=== PATIENT | female | born 1935 | race Caucasian/White ===

== ENCOUNTER 2019-04-26 16:39 | Inpatient (IN) | payer OTHER ==
[~2019-04-26] VITALS: Ht 167.6 cm; Wt 56.4 kg
--- NOTE | ~2019-04-26 | H ---
[facility] [place] [address] HISTORY AND PHYSICAL Name: RONNIE BUSH Room #: 429-P ADM IN M.R.#: [id number] Admission: 04/26/19 Attend Phys: Jason Alcaraz MD Discharge: Date of : 36 Report #: [id number] THIS REPORT FOR: //name// CC: Jason Alcaraz HISTORY OF PRESENT ILLNESS: The patient is an 83-year-old female who was brought to the Emergency Room with severe vertigo where she was feeling very dizzy and unsteady. The patient was having some extensive nausea and vomiting. For this reason, she was given some meclizine and eventually if she was given benzodiazepine without improvement of her symptoms and eventually she was admitted to the hospital overnight. When I came to see her today, the patient's symptoms have cleared up completely. The patient was able to move her head without any problem and she was able to move in the room in the presence of myself, the nurse and her son without any problem. The patient is not able to remember what happened to her yesterday because of her underlying dementia. PAST MEDICAL HISTORY: Significant for dementia, depression, anxiety and type 2 diabetes mellitus. The patient does not use any walker or cane in the correction facility. The patient has a history of hyperlipidemia in addition to hypertension. MEDICATIONS: The patient's medications include Aricept 5 mg daily, citalopram 10 mg daily, metformin 500 mg b.i.d., acetaminophen 650 mg every 8 hours, Imodium 2 mg to use as directed, milk of magnesia 15 mL t.i.d. p.r.n., bisacodyl 5 mg daily and memantine 10 mg daily. ALLERGIES: No known drug allergies. SOCIAL HISTORY: The patient is living in a skilled memory care assisted living. No recent history of smoking, alcohol use or drug use. REVIEW OF SYSTEMS: Negative besides what was mentioned above. PHYSICAL EXAMINATION: VITAL SIGNS: On arrival to the hospital, the patient's temperature was 36.7, pulse 53, respirations 18, blood pressure 191/87 and last blood pressure is 173/78. HEAD AND NECK: Unremarkable. Neck was supple. LUNGS: Clear to auscultation. CARDIAC: S1, S2. ABDOMEN: Benign. Bowel sounds were positive. EXTREMITIES: Without any edema. NEUROLOGIC: Cranial nerves were intact. Power is 5/5 on the upper and lower extremities. The patient does not have any sensory deficit. The patient was able to move her head in all directions without any limitation. The patient does not have any nystagmus. The patient was able to walk without any assistance and without any signs of vertigo [place] [address] HISTORY AND PHYSICAL Name: RONNIE BUSH Room #: 429-P ADM IN M.R.#: [id number] Admission: 04/26/19 Attend Phys: Jason Alcaraz MD Discharge: Date of : 36 Report #: [id number] ASSESSMENT AND PLAN: Benign positional vertigo that has cleared up completely. I talked to the patient's son and to the nurse on the floor about the patient's condition. We are planning to have the patient eat her diet and ambulate as much as possible. I will ask for the patient to be discharged back to her assisted living today because his symptoms have cleared up completely. The patient will be followed at the assisted living. By: [phone] Jason Alcaraz MD /nt
[2019-04-26 16:41] VITALS: BP 136/82
[2019-04-26] MEDS ORDERED: LEXAPRO 10 MG T10 M2 PO (16:44)
[2019-04-26] MEDS ORDERED: APAP650 PO (16:44)
[2019-04-26] MEDS ORDERED: METFORMIN HCL500 MG PO (16:44)
[2019-04-26] MEDS ORDERED: ARICEPT 5 MG TAB5 MG PO (16:44)
[2019-04-26] MEDS ORDERED: LOPERAMIDE 2 MG2 M1 PO (16:44)
[2019-04-26] MEDS ORDERED: DULCOLAX5 MG RECTAL (16:45)
[2019-04-26] MEDS ORDERED: MILK OF MA400 MG/5 M PO (16:45)
[2019-04-26] MEDS ORDERED: NAMENDA 10 MG T10 MG PO (16:45)
[2019-04-26 17:15] LABS: ABSOLUTE NEUTROPHILS 6.3 thou/uL (1.4-8.2); BASOPHILS 0.7 % (0.0-2.0); EOSINOPHILS 0.3 % (0.0-3.0); HEMATOCRIT 41.3 % (37.0-47.0); HEMOGLOBIN 14.2 gm/dL (12.0-15.0); LYMPHOCYTES 28.3 % (24.0-44.0); MCH 30.6 pg (26.0-34.0); MCHC 34.5 g/dL (28.0-37.0); MCV 88.6 fL (80.0-100.0); MONOCYTES 4.6 % (1.0-8.0); PLATELET COUNT 237 thou/uL (150-400); POLYS 66.1 % (36.0-66.0); RBC 4.66 mil/uL (4.20-5.00); RDW 13.8 % (10.5-14.5); WBC 9.5 thou/uL (4.0-11.0)
[2019-04-26 17:26] LABS: CALCIUM 9.3 mg/dL (8.5-10.1); CREATININE 0.7 mg/dL (0.6-1.0); POTASSIUM 3.5 mmol/L (3.5-5.1)
[2019-04-26 17:41] LABS: ALBUMIN 3.6 g/dL (3.4-5.0); TOTAL BILIRUBIN 0.6 mg/dL (<0.1-1.0)
[2019-04-26 19:11] LABS: URINE BILIRUBIN NEGATIVE (Negative); URINE BLOOD 1+ (Negative); URINE CLARITY CLEAR; URINE COLOR YELLOW; URINE GLUCOSE-RANDOM* NEGATIVE (Negative); URINE KETONES 1+ (Negative); URINE LEUKOCYTES-REFLEX NEGATIVE (Negative); URINE NITRITE-REFLEX NEGATIVE (Negative); URINE UROBILINOGEN 0.2 E.U./dl (0.2-1.0)
[2019-04-26 19:14] LABS: SSA (PROTEIN CONFIRMATORY) TRACE (APPROX. 5) mg/dL (Negative)
[2019-04-26 19:16] LABS: SQUAMOUS >10 Many /LPF (0-3)
[2019-04-26 19:17] LABS: CASTS None Seen /LPF (None Seen); URINE RBC 3-10 Few /HPF (0-2); URINE WBC-REFLEX 0-5 Rare /HPF (0-5)
[2019-04-26 19:18] LABS: AMORPHOUS PHOSPHATES Moderate /LPF (None Seen); BACTERIA-REFLEX None Seen /HPF (None Seen)
[2019-04-26 19:43] VITALS: BP 146/77
[2019-04-26 19:50] VITALS: BP 174/79
[2019-04-26 20:10] VITALS: BP 173/78
--- NOTE | 2019-04-26 23:49 | NUR ---
PT ARRIVED ON THE UNIT @1999 FROM ER A&OX3 WITH HX OF DEMENTIA. SON KATHRYN(DPOA) HELPED WITH ANSWERING QUESTIONS AND ADMISSION. ZOFRAN GIVEN IN THE ER DUE TO N/V. DENIES PAIN. UP WITH ASSISTX1 TO THE BATHROOM. SLIGHT DIZZINESS NOTED. ADM DOCUMENTED, FALL PREC IN PLACE AND ROOM NEAR TO THE NURSE STATION. WILL CONTINUE TO MONITOR TILL EOS.
[2019-04-27 05:17] VITALS: BP 191/86
--- NOTE | 2019-04-27 07:57 | EKG ---
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 04/27/19 0757 1840 1840 Chava Garcia MD, FACC /EPI
[2019-04-27 09:31] VITALS: BP 191/86
--- NOTE | 2019-04-27 10:00 | NUR ---
PT ASSESSED AT START OF SHIFT. PT UP AND AROUND IN THE ROOM W/ STANDBY AND DOING WELL. STATES NO MORE DIZZINESS. DR. WEINER IN WHILE SON HERE AND DISCUSSED PLAN OF CARE TO SEND BACK HOME TODAY AND HAVE HOME HEALTH F/U. INSTRUCTED PT TO DRINK WATER DURING THE DAY. PT DISCHARGED AT THIS TIME W/ SON TRANSPORTING.
--- NOTE | 2019-04-27 10:04 | NUR ---
INITIAL ASSESSMENT: Pt evaluated for d/c planning needs. Reviewed chart and spoke with nurse, pt and pt's son. Pt is a [facility] resident at [facility]. Pt was independent with ADL's and used no DME. Pt has history of dementia. Son said that he was trying to make arrangements with [facility] for outpatient PT and OT. Spoke with assistant director of admissions at [facility] and faxed referral. She said she would contact Javi with [facility] to continue services with outpatient PT and OT at facility. Pt to be d/c today. Son to provide transport. Patient choice letter signed and placed on chart. No other needs identified.
== END 2019-04-27 12:52 | DRG 149 ==
LOC: ER 16:39 → 4E 19:26 → EROBS 19:26 → 4E 19:53
PROVIDERS: Physician Assistant; ADMIT Internal Medicine
DX: H81.10 Benign paroxysmal vertigo, unspecified ear (principal); F32.9 Major depressive disorder, single episode, unspecified; F03.90 Unspecified dementia, unspecified severity, without behavioral disturbance, psychotic disturbance, mood disturbance, and anxiety; F41.9 Anxiety disorder, unspecified; E11.9 Type 2 diabetes mellitus without complications; I10 Essential (primary) hypertension; E78.5 Hyperlipidemia, unspecified; Z79.84 Long term (current) use of oral hypoglycemic drugs
CPT/HCPCS: 10183

== ENCOUNTER → 2019-07-21 | Outpatient (CLI) | payer OTHER ==
[~2019-07-21] MED LIST: APAP650 PO; ARICEPT 5 MG TAB5 MG PO; DULCOLAX5 MG RECTAL; LEXAPRO 10 MG T10 M2 PO; LOPERAMIDE 2 MG2 M1 PO; METFORMIN HCL500 MG PO; MILK OF MA400 MG/5 M PO; NAMENDA 10 MG T10 MG PO
[2019-07-21 13:27] LABS: ABSOLUTE NEUTROPHILS 4.6 thou/uL (1.4-8.2); BASOPHILS 0.8 % (0.0-2.0); EOSINOPHILS 1.7 % (0.0-3.0); HEMATOCRIT 40.8 % (37.0-47.0); HEMOGLOBIN 13.6 gm/dL (12.0-15.0); LYMPHOCYTES 39.2 % (24.0-44.0); MCH 29.5 pg (26.0-34.0); MCHC 33.4 g/dL (28.0-37.0); MCV 88.3 fL (80.0-100.0); PLATELET COUNT 417 thou/uL (150-400); POLYS 50.3 % (36.0-66.0); RBC 4.62 mil/uL (4.20-5.00); RDW 13.4 % (10.5-14.5); WBC 9.1 thou/uL (4.0-11.0)
[2019-07-21 13:33] LABS: CALCIUM 10.1 mg/dL (8.5-10.1); CREATININE 0.8 mg/dL (0.6-1.0); POTASSIUM 4.2 mmol/L (3.5-5.1)
== END ==
LOC: CAT 10:23 → LABMALL 12:50 → CAT 12:50
PROVIDERS: Internal Medicine
DX: R41.82 Altered mental status, unspecified (principal); R90.82 White matter disease, unspecified

== ENCOUNTER 2020-03-09 11:36 | Inpatient (IN) | payer OTHER ==
[~2020-03-09] VITALS: Ht 160 cm; Wt 58.2 kg
--- NOTE | ~2020-03-09 | EMS ---
[facility] [address] [place] [address] EMS Patient Care Report Name: RONNIE BUSH Room #: 436-P ADM IN M.R.#: [id number] Admission: 03/09/20 Attend Phys: Jason Alcaraz MD Discharge: Date of : 36 Report #: [id number] THIS REPORT FOR: //name// Report Transmitted: 03/10/2020 03:57 EMS Care Summary [place], [place]/[facility] Incident [id number] @ 03/09/2020 11:04 Incident Location [address] Patient RONNIE BUSH Female, 84 Years 1935 Patient Address [address] [place] [address] Patient History Dementia,Diabetes,Hypertension (HTN),Hyperlipidemia,Depression,Anxiety, Patient Allergies No known allergies, Patient Medications Metformin, Loperamide, Zofran, Aspirin, Ativan, Seroquel, Tylenol, Chief Complaint PAIN IN RIGHT SHOULDER AND RIGHT LEG Disposition Transported No Lights/[place] Dispatch Reason Falls Transported To [facility] Narrative SCENE; ON ARRIVAL PT FOUND LYING UPRIGHT IN BED IN BEDROOM AT ADDRESS PROVIDED. PT IS AWAKE AND ALERT WITH A GCS OF 15. STAFF REPORTS PT SUSTAINED AN UNWITNESSED FALL, AND WAS FOUND BY FACILITY STAFF. PT REPORTS SHE LOST HER [facility] [address] [place] [address] EMS Patient Care Report Name: RONNIE BUSH Room #: 436-P ADM IN ..#: [id number] Admission: 03/09/20 Attend Phys: Jason Alcaraz MD Discharge: Date of : 36 Report #: [id number] FOOTING, AND FELL FROM A STANDING POSITION ONTO THE CARPET. PT DENIES LOC. PT HAS NO OBVIOUS INJURIES, BUT C/O RIGHT ELBOW AND RIGHT LEG PAIN. PT HAS A HX OF DEMENTIA AND STAFF REPORTS PT IS TYPICALLY SOMEWHAT CONFUSED, DEPENDING ON THE DAY, BUT IS ALSO TYPICALLY FAIRLY STUBBORN. PT INITIALLY DOES NOT WISH TO GO WITH EMS, BUT AGREES TO GO WITH EMS FOR URTHER EVAL AND TREATMENT BY AN ER DR. PT ASSISTED ONTO EMS STRETCHER. AMBULANCE VITALS MONITORED THROUGHOUT TRANSPORT. NO CHANGES IN PT STATUS EN ROUTE. Initial Vitals @11:29P: 79,R: 20,BP: 178/72,Pain: 2/10,GCS: 14,Revised Trauma: 12, @11:14P: 80,R: 20,Pain: 2/10,GCS: 14,Revised Trauma: 12, Assessments @11:15MENTAL:No Abnormalities,SKIN:No Abnormalities,HEENT:Head/Face: No Abnormalities,Eyes: No Abnormalities,Neck/Airway: No Abnormalities,LUNG SOUNDS:General: No Abnormalities,Left Upper: No Abnormalities,Right Upper: No Abnormalities,Left Lower: No Abnormalities,Right Lower: No Abnormalities,ABDOMEN:General: No Abnormalities,Left Upper: No Abnormalities,Right Upper: No Abnormalities,Left Lower: No Abnormalities,Right Lower: No Abnormalities,PELVIS//GI:No Abnormalities,EXTREMITIES:Right Arm: Other,Right Leg: Other,Left Arm: No Abnormalities,Left Leg: No Abnormalities,PULSE:NEURO:No Abnormalities,@11:26MENTAL:No Abnormalities,SKIN:No Abnormalities,HEENT:Head/Face: No Abnormalities,Eyes: No Abnormalities,Neck/Airway: No Abnormalities,LUNG SOUNDS:General: No Abnormalities,Left Upper: No Abnormalities,Right Upper: No Abnormalities,Left Lower: No Abnormalities,Right Lower: No Abnormalities,ABDOMEN:General: No Abnormalities,Left Upper: No Abnormalities,Right Upper: No Abnormalities,Left Lower: No Abnormalities,Right Lower: No Abnormalities,PELVIS//GI:No Abnormalities,EXTREMITIES:PULSE:NEURO:No Abnormalities, Impression Extremity Pain Procedures @11:15ALS AssessmentResponse: UnchangedSucceeded@11:24StretcherResponse: Unchanged Timeline 11:02,Call Received 11:02,Dispatch Notified 11:04,Dispatched 11:04,En Route 11:12,On Scene 11:14,At Patient [address] [address] EMS Patient Care Report Name: RONNIE BUSH Room #: [facility]- ADM IN M.R.#: [id number] Admission: 03/09/20 Attend Phys: Jason Alcaraz MD Discharge: Date of : 36 Report #: [id number] 11:14,BP: 162/ M,PULSE: 80,RR: 20 R,SPO2: Ox,ETCO2: ,BG: ,PAIN: 2,GCS: 14, 11:15,ALS Assessment,Response: UnchangedSucceeded, 11:24,Stretcher,Response: Unchanged 11:29,BP: 178/72 M,PULSE: 79,RR: 20 R,SPO2: Ox,ETCO2: ,BG: ,PAIN: 2,GCS: 14, 11:29,Depart Scene 11:33,At Destination 11:53,Call Closed Disclaimer v1.1 Copyright 2020 [employer] This EMS Care Summary contains data elements from the applicable legal record (which may be displayed differently). It is designed to provide pertinent information for the following purposes: continuity of care, clinical quality, and state data reporting. The complete legal record is available to ED staff and administrators of the receiving hospital in [employer]'s Patient Tracker. All data is provided "as is."
[2020-03-09 11:38] VITALS: BP 194/90
[2020-03-09] MEDS ORDERED: PAIN RELIEF325 MG PO (11:49)
[2020-03-09] MEDS ORDERED: ONDANSETRON HCL4 M2 PO (11:50)
[2020-03-09] MEDS ORDERED: ATIVAN0.5 M1 PO (11:51)
[2020-03-09] MEDS ORDERED: ASA81BEC PO (11:52)
[2020-03-09] MEDS ORDERED: SEROQUEL 25 MG25 M1 PO (11:52)
[2020-03-09 12:41] LABS: ABSOLUTE NEUTROPHILS 6.2 thou/uL (1.4-8.2); BASOPHILS 0.9 % (0.0-2.0); EOSINOPHILS 1.3 % (0.0-3.0); HEMATOCRIT 41.2 % (37.0-47.0); HEMOGLOBIN 13.9 gm/dL (12.0-15.0); LYMPHOCYTES 25.8 % (24.0-44.0); MCH 30.6 pg (26.0-34.0); MCHC 33.8 g/dL (28.0-37.0); MCV 90.6 fL (80.0-100.0); MONOCYTES 6.5 % (1.0-8.0); PLATELET COUNT 275 thou/uL (150-400); POLYS 65.5 % (36.0-66.0); RBC 4.55 mil/uL (4.20-5.00); RDW 14.1 % (10.5-14.5); WBC 9.5 thou/uL (4.0-11.0)
[2020-03-09 12:48] LABS: CALCIUM 9.2 mg/dL (8.5-10.1); CREATININE 0.9 mg/dL (0.6-1.0); POTASSIUM 3.9 mmol/L (3.5-5.1)
[2020-03-09 13:36] LABS: PROTIME 10.6 Seconds (9.3-11.4)
--- NOTE | 2020-03-09 14:32 | EKG ---
[facility] [place] [address] ELECTROCARDIOGRAM REPORT Name: RONNIE BUSH Room #: [facility]#: [id number] Admission: 03/09/20 Attend Phys: Discharge: Date of : 36 Report #: [id number] THIS REPORT FOR: cc: Jason Alcaraz MD, Ammar MD Couchonnal, Luis F. 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
[2020-03-09 18:20] VITALS: BP 148/101
--- NOTE | 2020-03-09 18:39 | NUR ---
TO ROOM 436, PER NAVYA, NOT 439
[2020-03-09 18:42] LABS: URINE BILIRUBIN NEGATIVE (Negative); URINE BLOOD NEGATIVE (Negative); URINE CLARITY CLEAR; URINE COLOR YELLOW; URINE GLUCOSE-RANDOM* NEGATIVE (Negative); URINE KETONES NEGATIVE (Negative); URINE NITRITE-REFLEX NEGATIVE (Negative); URINE PROTEIN (DIPSTICK) NEGATIVE (Negative); URINE SPECIFIC GRAVITY 1.015 (1.005-1.035); URINE UROBILINOGEN 0.2 E.U./dl (0.2-1.0)
[2020-03-09 18:45] LABS: URINE LEUKOCYTES-REFLEX 1+ (Negative)
[2020-03-09 18:49] LABS: BACTERIA-REFLEX >30 Many /HPF (None Seen); CASTS None Seen /LPF (None Seen); CRYSTALS None Seen /LPF (None Seen); SQUAMOUS 0-3 Few /LPF (0-3); URINE RBC None Seen /HPF (0-2); URINE WBC-REFLEX 6-15 Few /HPF (0-5)
[2020-03-09 18:53] VITALS: BP 125/67
[2020-03-09 19:20] VITALS: BP 132/84
[2020-03-10] VITALS (7 sets, daily range): BP systolic 138–175; BP diastolic 65–84
--- NOTE | 2020-03-10 01:30 | NUR ---
PT ARRIVED FROM THE ER VIA CART @1920. AOX2-3 FORGETFULL STILL ABLE TO ANSWER QUESTIONS. ORIENTED TO THE ROOM. PT SPOKE TO SON OVER THE PHONE. CALLED DR WEINER AND ORDERS RECEIVED FOR PAIN CONTROL AND FLUID INFUISION. MORPHINE GIVEN FOR RT HIP PAIN OF 510. PT NPO FOR SX TOMORROW. FOLLEY CATH IN PLACE. VSS. CALL LIGHT IN REACH, FALL PREC IN PLACE AND WILL CONT WITH POC TILL EOS.
[2020-03-10 06:02] LABS: HEMATOCRIT 39.9 % (37.0-47.0); MCH 30.2 pg (26.0-34.0); MCHC 32.7 g/dL (28.0-37.0); MCV 92.5 fL (80.0-100.0); RBC 4.31 mil/uL (4.20-5.00); RDW 14.5 % (10.5-14.5); WBC 8.5 thou/uL (4.0-11.0)
[2020-03-10 06:14] LABS: CALCIUM 8.5 mg/dL (8.5-10.1); CREATININE 0.7 mg/dL (0.6-1.0); POTASSIUM 3.8 mmol/L (3.5-5.1)
--- NOTE | 2020-03-10 07:43 | EKG ---
[facility] [place] [address] [place] [address] ELECTROCARDIOGRAM REPORT Name: RONNIE BUSH Room #: 436-P ADM IN M.R.#: [id number] Admission: 03/09/20 Attend Phys: Jason Alcaraz MD Discharge: Date of : 36 Report #: [id number] THIS REPORT FOR: cc: Jason Alcaraz MD, Ammar MD Lundgren,Chava Duarte MD [facility] ~ THIS REPORT FOR: //name// 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 : 1935 Requested By: Shilpa Knowles Order Number: [id number] MD: Chava Garcia Measurements Intervals [place] Rate: 115 P: -33 VT: 150 QRS: -47 QRSD: 91 T: 28 QT: 322 QTc: 446 Interpretive Statements Sinus tachycardia Left anterior fascicular block Poor R wave progression Nonspecific ST segment abnormality Compared to ECG 03/09/2020 12:58:41 ST segment abnormality is now present Electronically Signed On 03-10-2020 7:42:55 CDT by Chava Garcia [email or web address] <ELECTRONICALLY SIGNED> By: Chava Garcia MD, [facility] 03/10/20 0742 1601 1601 Chava Garcia MD, FAC /EPI
--- NOTE | 2020-03-10 11:37 | HC ---
[facility] [place] [address] [place] [address] CONSULTATION Name: RONNIE BUSH Room #: [facility]- ADM IN M.R.#: [id number] Admission: 03/09/20 Attend Phys: Jason Alcaraz MD Discharge: Date of : 36 Report #: [id number] THIS REPORT FOR: cc: Jason Alcaraz MD,Ba Nava MD, MD ~ CC: Jason Alcaraz DATE OF SERVICE: 03/09/2020 CHIEF COMPLAINT: Right proximal femoral fracture. HISTORY OF PRESENT ILLNESS: This 84-year-old female is demented and I believe lives in an extended care facility. She is confused and ambulates independently, but has poor balance and I believe has had multiple falls. Her son states that he has tried to encourage therapy and use a walker, but she has refused. She fell again today injuring the right hip. She was brought to [facility] where x-rays confirm an impacted, slightly angulated fracture of the right femoral neck. She has no other apparent injuries. At the time of my evaluation, she is confused and therefore difficult to achieve any sort of a history. She seems to have no obvious complaints or injuries involving the neck, back or upper extremities. The right lower extremity does not appear to be shortened or significantly rotated or deformed. There is, however, discomfort with any attempted movement about the right hip. The right knee, lower leg, foot, and ankle appear to be normal. The left lower extremity reveals satisfactory movement at the hip with minimal discomfort. The left knee, lower leg, foot, and ankle appear to be normal. X-rays of the pelvis and right hip reveal an impacted femoral neck fracture, which is displaced posteriorly and into valgus position. While there is satisfactory bony contact at this point, the fracture does appear to be moderately unstable given the posterior rotational deformity. IMPRESSION: Right femoral neck fracture with moderate displacement. I have discussed this issue at some length with the patient's eldest son who is her durable power of mergers and acquisitions attorney. I have explained that we could manage this either without surgery or with percutaneous screw fixation or with proximal femoral hemiarthroplasty. He states that she is still ambulating and is not very cooperative. Given this, I doubt that nonsurgical management or percutaneous screw fixation would be successful. Consequently, I believe a proximal femoral hemiarthroplasty would be the best option to allow her to resume ambulation with hopefully some assistance and some monitoring. At the time of this dictation, the son is in general agreement and would like to proceed with planning and scheduling for surgery either tomorrow or the following day. He notes he will be talking with the rest of the family before [place] [address] CONSULTATION Name: RONNIE BUSH Room #: 436-P [facility] IN M.R.#: [id number] Admission: 03/09/20 Attend Phys: Jason Alcaraz MD Discharge: Date of : 36 Report #: [id number] Therefore, at this point, we will go ahead with medical clearance and keep her n.p.o. after midnight. If there is time in the operating room tomorrow, then I will plan to proceed with a proximal femoral hemiarthroplasty. <ELECTRONICALLY SIGNED> By: Ba Duarte MD 03/10/20 1137 1745 1830 Ba Duarte MD /nt
--- NOTE | 2020-03-10 17:33 | NUR ---
Case opened to follow for dc planning. Director Of Retention visited with the pt mary at bedside. She is oriented to person but not place or situation. She indicates that her son Jakob is her emergency contact. She was then taken to surgery for hip fx. Chart reviewed and discussed with the care team. Director Of Retention spoke with her son Jakob who is her medical DPOA. A copy of this document, her living will and outside the hospital dnr form are on the chart. The pt is a resident from [facility]. She has been living at [facility] in their lisseth since 2018 but moved to the memory care unit this past Nov due to increased stm loss. She is ambulatory and fell at the facility. Her son indicates that they would like her to return to SNF at [facility] if she is able to participate with therapy. He is available via phone as needed. [facility] as they will need to get auth from [facility]. Will await therapy evals and fax a clinical update tomorrow. Poss dc 2-3 days pending her postop progress.
--- NOTE | 2020-03-10 17:42 | NUR ---
PT ASSESSED AT START OF SHIFT. PT CONFUSED AND CRYING W/ PAIN THIS AFTERNOON. MORPHINE GIVEN AND PT RELAXED BUT PULLED OUT HER MARVIN W/ BALLOON INTACT. INFORMED SURGERY RN TO ENABLE THEN TO REPLACE IT. TALKED W/ SON AND HE HAD TALKED W/ DR. KAMINSKI RE SURGERY AND HE TALKED W/ HIS MOTHER AT THE BEDSIDE. PT TAKEN TO PREOP AT 1700.
[2020-03-11] VITALS: BP 137/63
--- NOTE | 2020-03-11 03:04 | NUR ---
PT ARRIVED FROM SX @1930 RESTING IN BED. KASSANDRA DRESSING, HEMOVAC INTACT. TEDHOSE ON BLE. IV INTACT AND FLUIDS STARTED. BLOODSUGAR CHECKED AND INSULIN ADMINISTERED. SON CALLED THE UNIT AND THIS NURSE UPDATED HIM ON PROGRESS. MORPHINE GIVEN TO PT FOR PAIN MANAGEMENT AND ICE PACK PLACED FOR COMFORT. FOLLEY CATH INTACT AND DRAINING. SCD'S IN PLACE. VITAL SIGNS CHECKED. PT ON CLEAR LIQUID. FALL PREC IN PLACE AND CALL LIGHT IN REACH WILL CONT WITH POC TILL EOS.
[2020-03-11 04:45] VITALS: BP 152/70
[2020-03-11 05:47] LABS: ABSOLUTE NEUTROPHILS 7.1 thou/uL (1.4-8.2); BASOPHILS 0.7 % (0.0-2.0); EOSINOPHILS 1.1 % (0.0-3.0); HEMATOCRIT 37.7 % (37.0-47.0); HEMOGLOBIN 12.9 gm/dL (12.0-15.0); LYMPHOCYTES 22.7 % (24.0-44.0); MCH 31.9 pg (26.0-34.0); MCHC 34.2 g/dL (28.0-37.0); MCV 93.4 fL (80.0-100.0); MONOCYTES 10.6 % (1.0-8.0); PLATELET COUNT 222 thou/uL (150-400); POLYS 64.9 % (36.0-66.0); RBC 4.03 mil/uL (4.20-5.00); WBC 10.9 thou/uL (4.0-11.0)
[2020-03-11 06:21] LABS: CALCIUM 8.2 mg/dL (8.5-10.1); CREATININE 0.8 mg/dL (0.6-1.0); POTASSIUM 4.2 mmol/L (3.5-5.1)
[2020-03-11 08:00] VITALS: BP 114/63
--- NOTE | 2020-03-11 14:20 | NUR ---
Another message was left for admissions at [facility]. Clinical updated faxed and with request for snf auth to be submitted for admission over the weekend if medically stable. Facility number is [phone] and admissions cell is [phone] and fax number [phone].
[2020-03-11 19:40] VITALS: BP 155/78
[2020-03-12 04:50] VITALS: BP 167/78
[2020-03-12 05:20] LABS: HEMATOCRIT 35.7 % (37.0-47.0); HEMOGLOBIN 11.8 gm/dL (12.0-15.0); MCH 30.8 pg (26.0-34.0); MCHC 32.9 g/dL (28.0-37.0); MCV 93.5 fL (80.0-100.0); RBC 3.82 mil/uL (4.20-5.00); RDW 14.2 % (10.5-14.5); WBC 10.3 thou/uL (4.0-11.0)
[2020-03-12 05:37] LABS: CREATININE 0.6 mg/dL (0.6-1.0); POTASSIUM 3.6 mmol/L (3.5-5.1)
--- NOTE | 2020-03-12 08:17 | NUR ---
PT C/O PAIN ON HER R HIP,MANAGED WITH MED.DRSG TO HER R HIP C/D/I.PT REPOSITIONED WHILE IN BED.MARVIN TO DD WITH LIGHT YELLOW URINE NOTED IN THE BAG.IVF INFUSING ORDERED.CALL LIGHT WITHIN REACH.
--- NOTE | 2020-03-12 09:23 | O ---
[facility] [place] [place] [address] OPERATIVE REPORT Name: RONNIE BUSH Room #: 436- ADM IN M.R.#: [id number] Admission: 03/09/20 Attend Phys: Jason Alcaraz MD Discharge: Date of : 36 Report #: [id number] THIS REPORT FOR: cc: Jason Alcaraz MD,Ba Nava MD, MD ~ CC: Jason Alcaraz PREOPERATIVE DIAGNOSIS: Right femoral neck fracture with displacement. POSTOPERATIVE DIAGNOSIS: Right femoral neck fracture with displacement. PROCEDURE: Right proximal femoral hemiarthroplasty. SURGEON: Ba Duarte MD INDICATIONS: This 84-year-old female is still ambulatory, but has poor balance and seems to fall frequently. She also is confused and demented, making her care difficult. She fell again injuring the right hip. X-rays revealed an unstable femoral neck fracture. I have discussed with her family the treatment options and they prefer to go ahead with surgical hemiarthroplasty hoping that she can resume ambulation despite her dementia and her balance issues. DESCRIPTION OF PROCEDURE: The patient was taken to the operating room where she was placed under general anesthesia. Prophylactic intravenous antibiotics were administered. She was turned to the left lateral decubitus position. The right hip, thigh and leg were meticulously prepped and draped. A slightly curving skin incision was made over the greater trochanter extending through fascia and exposing the posterior aspect of the hip joint. The short external rotators and capsule were taken down and preserved and tagged with several #1 Tevdek sutures. The femoral neck was found to be fractured and unstable. A femoral neck osteotomy was performed and the head and neck were removed. The head was measured at 43 mm in diameter. The canal was prepared using reamers and hand broaches. The Sanford and Nephew hip system was utilized. A size 12 cement stem seemed to fit most appropriately. A trial reduction was performed and the hip was nicely reduced and stable when using a +0 neck length and a 43 mm unipolar head. These trial components were removed. The canal was thoroughly irrigated and dried. A cement restrictor was placed. Methyl methacrylate cement was mixed and injected into the canal. The Sanford and Nephew size 12 Synergy cemented stem was then inserted, placing this in about 15-20 degrees of anteversion. It seated nicely and appeared to be secure. A 43 mm unipolar head and a +0 neck length sleeve were then inserted. This was impacted on the Jansen taper and seated nicely and appeared to be secure. The hip was then reduced. Alignment, range of motion, stability and leg length were assessed and felt to be satisfactory. The capsule and short external rotators were then repaired back [address] [address] OPERATIVE REPORT Name: LORAINE BUSHORE Room #: 436-P [facility] IN M.R.#: [id number] Admission: 03/09/20 Attend Phys: Jason Alcaraz MD Discharge: Date of : 36 Report #: [id number] to bone using #1 Tevdek sutures, passed through small drill holes in greater trochanter. A single Hemovac was left in the wound exiting through a separate stab incision. The fascia was closed with multiple #1 Vicryl sutures. The subcutaneous tissues were closed with 0 Monocryl. The skin was closed with skin ron. A sterile dressing was applied. The patient was awakened and returned to recovery room in good condition. <ELECTRONICALLY SIGNED> By: Ba Duarte MD 03/12/20 0923 1835 1843 Ba Duarte MD /nt
--- NOTE | 2020-03-12 09:28 | H ---
[facility] [place] [address] HISTORY AND PHYSICAL Name: RONNIE BUSH Room #: 436- ADM IN M.R.#: [id number] Admission: 03/09/20 Attend Phys: Jason Alcaraz MD Discharge: Date of : 37 Report #: [id number] THIS REPORT FOR: cc: Jason Alcaraz MD,Jason Alcaraz,Jason PIERCE ~ CC: Jason Alcaraz DATE OF SERVICE: 03/09/2020 HISTORY OF PRESENT ILLNESS: The patient is an 84-year-old female who was brought to the Emergency Room after a fall at [facility] with a complaint of pain on the right hip. The patient does not know how she fell or why she fell, but she did not have any loss of consciousness. She did not have any head injury. She did not have any palpitation or dizziness or any nausea or vomiting. PAST MEDICAL HISTORY: Significant for dementia of Lewy body, depression, anxiety, type 2 diabetes mellitus, hypertension and hyperlipidemia. MEDICATIONS: Include metformin 500 mg 1 tablet b.i.d., loperamide 2 mg 4 times a day as needed, magnesium hydroxide 5-15 mL p.o. t.i.d., bisacodyl 5 mg daily, acetaminophen 2 tablets 4 times a day as needed, Zofran 4 mg every 8 hours as needed, Ativan one tablet q.i.d. p.r.n., aspirin 81 mg daily and Seroquel 25 mg daily. ALLERGIES: No known drug allergies. REVIEW OF SYSTEMS: The patient is pleasant. She is not in any distress. The patient denies any pain. She denies any headache, blurred vision, runny nose, sore throat, cough, chest pain, shortness of breath or palpitation. She denies any nausea, vomiting or changes in her bowels. She denies any pain in the arms or legs. PHYSICAL EXAMINATION: VITAL SIGNS: The patient's temperature on arrival to the hospital was 98.0, pulse 66, respirations 12, blood pressure 194/90. Last blood pressure is 152/81. HEAD AND NECK: Unremarkable. Neck was supple. LUNGS: Clear to auscultation with good air entry bilaterally. CARDIAC: S1, S2, without any murmur or gallop. ABDOMEN: Benign. Bowel sounds were positive. EXTREMITIES: Without any edema. LABORATORY DATA: The patient's CBC with diff showed white count of 9.5, hemoglobin 13.9, hematocrit 41.2, platelet count 275, and neutrophils are 65%. [place] [address] HISTORY AND PHYSICAL Name: RONNIE BUSH Room #: [address] [place] [address] [place] ..#: [id number] Admission: 03/09/20 Attend Phys: Jason Alcaraz MD Discharge: Date of : 37 Report #: [id number] The patient's basic metabolic panel showed a sodium of 138, potassium 3.9, chloride 102, bicarbonate 28, BUN 10, creatinine 0.9, and glucose is 172. The patient's x-ray of the chest showed no acute cardiopulmonary process. X-ray of the left elbow showed no fracture or deformity detected. X-ray of the right hip showed impacted right subcapital fracture with mild rotation of the fracture site. Troponin less than 0.06. INR is 1. A 12-lead EKG showed left ventricular hypertrophy, baseline wandering in lead V5, otherwise no acute changes. Urinalysis showed +1 leukocyte, white blood cells are 6-15, red blood cells not seen, bacteria more than 30. Repeated EKG showed sinus tachycardia, left anterior fascicular block, probable left ventricular hypertrophy, anterior Q-wave, possibly due to left ventricular hypertrophy. Basic metabolic panel showed a sodium of 137, potassium 3.8, chloride 104, bicarbonate 24, BUN 9, creatinine 0.7, glucose 192. Repeated CBC from today was normal. ASSESSMENT AND PLAN: Status post fall with right hip fracture. The patient does not have any cardiac issues and her physical examination is normal. The patient will be accepted to go to surgery. The patient will require post-surgical repair, deep vein thrombosis prophylaxis. I will send the urine for culture and treat urinary tract infection if it comes back positive. I will resume the patient's medications and start the patient on sliding scale. <ELECTRONICALLY SIGNED> By: Jason Alcaraz MD 03/12/20 0928 0740 Jason Alcaraz MD /nt
[2020-03-12 15:00] VITALS: BP 139/64
[2020-03-12 21:35] VITALS: BP 178/86
--- NOTE | 2020-03-13 03:45 | NUR ---
RECEIVED CARE OF THIS PATIENT AT 1900. PATIENT ALERT AND ORIENTED TO PERSON AND TIME. CONFUSED AND FORGETFUL. DENIED PAIN WHEN ASKED BUT WAS LAYING IN BED CRYING. ASKED IF SHE NEEDED SOME MS IV FOR PAIN SHE SAID YES. MED GIVEN WITH GOOD RESULTS. IV PATENT IN RAC WITH FLUIDS INFUSING. ACCUCHECK WAS 236, RECEIVED 4 UNITS LISPRO INSULIN. REFUSES SCD'S BUT DOES HAVE ON ISABELLE DORI HOSE. SLEPT MOST OF THE NIGHT.
--- NOTE | 2020-03-13 07:15 | NUR ---
ASSUMED CARE OF PATIENT SHE STATES GENERAL PAIN GAVE PRN IV PAIN MED. WILL LET PATIENT SLEEP UNTIL BREAKFAST.
[2020-03-13 08:38] VITALS: BP 125/64
[2020-03-13 08:39] LABS: ABSOLUTE NEUTROPHILS 6.5 thou/uL (1.4-8.2); BASOPHILS 0.8 % (0.0-2.0); EOSINOPHILS 1.4 % (0.0-3.0); HEMATOCRIT 33.4 % (37.0-47.0); HEMOGLOBIN 11.4 gm/dL (12.0-15.0); LYMPHOCYTES 19.9 % (24.0-44.0); MCH 31.1 pg (26.0-34.0); MCHC 34.3 g/dL (28.0-37.0); MCV 90.9 fL (80.0-100.0); MONOCYTES 10.3 % (1.0-8.0); PLATELET COUNT 198 thou/uL (150-400); POLYS 67.6 % (36.0-66.0); RBC 3.67 mil/uL (4.20-5.00); RDW 13.7 % (10.5-14.5); WBC 9.7 thou/uL (4.0-11.0)
[2020-03-13 08:51] LABS: CALCIUM 7.9 mg/dL (8.5-10.1); CREATININE 0.6 mg/dL (0.6-1.0); POTASSIUM 3.2 mmol/L (3.5-5.1)
[2020-03-13] MEDS ORDERED: CEFUROXIME500 MG PO (09:19)
[2020-03-13] MEDS ORDERED: ENOXAPARIN40 MG/0.1 SUBQ (09:19)
[2020-03-13] MEDS ORDERED: NORVASC5 MG PO (09:20)
[2020-03-13] MEDS ORDERED: HYDROCODON-ACE1 EAC7 PO (09:20)
--- NOTE | 2020-03-13 16:34 | NUR ---
PATIENT IS UP IN BEDSIDE CHAIR. ATE SMALL AMOUNT OF LUNCH 25%. SPOKE WITH SON ON PHONE. GIVEN PRN PAIN MED RESTING COMFORTABLY NO PAIN OR RESP DISTRESS.
[2020-03-13 18:02] VITALS: BP 134/53
[2020-03-13 19:54] VITALS: BP 133/58
--- NOTE | 2020-03-13 23:28 | NUR ---
PT WAS IN BED AT START OF SHIFT.PT WAS OBSERVED TRYING TO CROSS HER LEGS,PILLOW PUT IN BETWEEN HER LEG A REMINDER.PT REF TO TAKE ALL HER PO MEDS AT HS. DRSG WITH A MIN DRAINAGE.DORI LOPES AND SCD IN PLACE.PT SLEEPING ON HER BED AT THIS TIME.FALL PRECAUTIONS IN PLACE,CALL LIGHT WITHIN REACH.
[2020-03-14 10:00] VITALS: BP 144/73
--- NOTE | 2020-03-14 10:11 | NUR ---
DARIN CONTACTED GUICHO IN ADMISSIONS AT [facility] SKILLED THIS AM TO INQUIRE ABOUT AUTH. SHE INDICATED THEY ARE STILL WAITING ON IT. CLINICAL UPDATES SENT OVER. CM FOLLOWING.
--- NOTE | 2020-03-14 13:31 | NUR ---
PHYSICIAN HAD INDICATED PT WAS MEDICALLY STABLE TO DC TO [facility] SKILLED SATURDAY BUT WE WERE AWAITING AUTH. AUTH WAS RECIEVED THIS AFTERNOON. [facility]SPORT ARRAGNED FOR 1430 VIA SECURE. CHART COPY MADE. ORDERS FAXED. PT'S SON KATHRYN NOTIFIED. HE IS AGREEABLE. REPORT TO BE CALLED TO . NO OTHER CM INTERVENTION INDICATED. CASE CLOSED.
--- NOTE | 2020-03-14 15:32 | NUR ---
PT DISCHARGING TODAY TO [facility] FAXED DC ORDERS/SUMMARY TO FACILITY SPOKE WITH GUICHO IN ADM SHE RECEIVED ORDERS AND ARRANGED TRANSPORT BY [facility] FOR 1430 TODAY. NOTIFIED PT'S SON (KATHRYN) OF DC AND TIME OF TRANSPORT. UNIT NOTIFIED AND CHART COPY PER US.
== END 2020-03-14 15:05 | DRG 470 ==
LOC: ER 11:36 → EROBS 15:14 → 4S 15:14
PROVIDERS: Nurse Practitioner Adult Health; Nurse Practitioner Family; Orthopaedic Surgery; ADMIT Internal Medicine; ATTEND Internal Medicine
PROC: 0SRR0J9 Replacement of Right Hip Joint, Femoral Surface with Synthetic Substitute, Cemented, Open Approach (ICD-10-PCS; principal; 2020-03-10)
DX: S72.011A Unspecified intracapsular fracture of right femur, initial encounter for closed fracture (principal); N39.0 Urinary tract infection, site not specified; F02.80 Dementia in other diseases classified elsewhere, unspecified severity, without behavioral disturbance, psychotic disturbance, mood disturbance, and anxiety; G31.83 Neurocognitive disorder with Lewy bodies; F32.9 Major depressive disorder, single episode, unspecified; F41.9 Anxiety disorder, unspecified; I10 Essential (primary) hypertension; E11.9 Type 2 diabetes mellitus without complications; Z20.828 Contact with and (suspected) exposure to other viral communicable diseases; W18.39XA Other fall on same level, initial encounter; E78.5 Hyperlipidemia, unspecified; Z79.899 Other long term (current) drug therapy; Z79.82 Long term (current) use of aspirin; Z79.84 Long term (current) use of oral hypoglycemic drugs; Y93.89 Activity, other specified; Y92.128 Other place in nursing home as the place of occurrence of the external cause; Y99.8 Other external cause status
CPT/HCPCS: 10100; 10102; 50010; 50101; 50382; 50414; 50445; 51057; 51130; 51225; 51412; 53000; 53369; 56521; 56525; 56530; 57103; 62110; 62900; 70005